=== PATIENT | female | born 1990 | race Hispanic/Latino ===

== ENCOUNTER 2017-08-20 22:17 | Emergency (ER) | payer SELFPAY ==
[2017-08-20 23:07] LABS: BASOPHILS % (AUTO) 0.5 % (0.0-5.0); EOSINOPHILS % (AUTO) 2.7 % (0.0-8.0); HEMATOCRIT 35.1 % (36-48); LYMPHOCYTES % (AUTO) 27.5 % (21.0-51.0); MEAN CORPUSCULAR HEMOGLOBIN 31.3 pg (27.0-33.0); MEAN CORPUSCULAR HGB CONC 36.2 g/dL (32.0-36.0); MEAN CORPUSCULAR VOLUME 86.5 fL (79-99); MONOCYTES % (AUTO) 7.9 % (3.0-13.0); NEUTROPHILS % (AUTO) 61.4 % (40.0-77.0); PLATELET COUNT (AUTO) 251 K/uL (130-400); RED BLOOD CELL COUNT(AUTO) 4.06 MIL/uL (4.00-5.50); RED CELL DISTRIBUTION WIDTH 14.5 % (11.0-15.5); WHITE BLOOD COUNT (AUTO) 8.9 K/uL (4.8-10.8)
[2017-08-20 23:23] LABS: CREATININE 0.6 mg/dL (0.5-1.5); POTASSIUM 3.9 mmol/L (3.5-5.1)
[2017-08-20 23:28] LABS: APPEARANCE,URINE Clear (CLEAR); BILIRUBIN,URINE Negative (NEGATIVE); COLOR,URINE Yellow (YELLOW); GLUCOSE, URINE (UA) Negative (NEGATIVE); KETONES,URINE Negative (NEGATIVE); LEUKOCYTE ESTERASE ,URINE Negative (NEGATIVE); NITRATE,URINE Negative (NEGATIVE); OCCULT BLOOD,URINE Negative (NEGATIVE); PH,URINE 6.5 (5.0-8.0); PROTEIN,URINE Negative (NEGATIVE)
[2017-08-20 23:49] LABS: ALBUMIN 3.9 g/dL (3.5-5.0); BILIRUBIN,TOTAL 0.5 mg/dL (0.2-1.0); TOTAL PROTEIN, SERUM 7.3 g/dL (6.0-8.3)
== END 2017-08-21 01:35 | disposition home or self-care (01) ==
LOC: EDH 22:17
DX: O20.0 Threatened abortion (principal); Z79.899 Other long term (current) drug therapy; Z3A.08 8 weeks gestation of pregnancy
CPT/HCPCS: 36415; 76801; 80053; 81003; 84702; 85025; 86900; 86901

== ENCOUNTER 2022-09-04 08:59 | Emergency (ER) | payer OTHER ==
[~2022-09-04] VITALS: Ht 162.6 cm; Wt 70.3 kg
[2022-09-04 10:16] LABS: APPEARANCE,URINE CLEAR (CLEAR); BILIRUBIN,URINE NEGATIVE (NEGATIVE); COLOR,URINE LIGHT-YELLOW (YELLOW); GLUCOSE, URINE (UA) NEGATIVE (NEGATIVE); KETONES,URINE NEGATIVE (NEGATIVE); LEUKOCYTE ESTERASE ,URINE NEGATIVE Leu/uL (NEGATIVE); NITRATE,URINE NEGATIVE (NEGATIVE); OCCULT BLOOD,URINE NEGATIVE (NEGATIVE); PROTEIN,URINE NEGATIVE (NEGATIVE); UROBILINOGEN,URINE 0.2 mg/dL (0.2-1.0)
[2022-09-04 10:17] LABS: HCG,QUALITATIVE URINE NEGATIVE (NEGATIVE)
[2022-09-04] MEDS ORDERED: SOLU-MEDROL 125MG VIAL IM ONE (10:30)
[2022-09-04] MEDS ORDERED: ORPHENADRINE CITRATE 30 MG/ML ML IM ONE (10:30)
[2022-09-04] MEDS ORDERED: KETOROLAC 60 MG VIAL (30MG/ML) IM ONE (10:30)
[2022-09-04] MEDS ORDERED: CYCL-309 PO (11:54)
[2022-09-04] MEDS ORDERED: NAPR-1180 PO (11:54)
[2022-09-04 12:34] VITALS: BP 124/81
== END 2022-09-04 12:32 | disposition home or self-care (01) ==
LOC: EDH 08:59
DX: M54.42 Lumbago with sciatica, left side (principal); I10 Essential (primary) hypertension
CPT/HCPCS: 99284; 81003; 81025; 96372; J2930; J1885; J2360

== ENCOUNTER 2023-04-22 19:38 | Emergency (ER) | payer OTHER ==
[~2023-04-22] VITALS: Ht 162.6 cm; Wt 66.7 kg
[~2023-04-22 19:38] MED LIST: CYCL-309 PO; NAPR-1180 PO
[2023-04-22 20:01] VITALS: BP 117/77; PULSE 78; RESP 20
[2023-04-22] MEDS ORDERED: DIAZEPAM 5 MG TABLET PO ONE (21:00)
[2023-04-22] MEDS ORDERED: PREDNISONE 20 MG TABLET PO ONE (21:00)
[2023-04-22] MEDS ORDERED: IBUPROFEN 600 MG TABLET PO ONE (21:00)
[2023-04-22] MEDS ORDERED: TIZANIDINE HCL 2 MG TABLET PO SCH (21:00)
[2023-04-22] MEDS ORDERED: PRED20TA3 PO (23:28)
[2023-04-22] MEDS ORDERED: GABA300C PO (23:28)
[2023-04-22] MEDS ORDERED: IBUP-2070 PO (23:28)
[2023-04-22] MEDS ORDERED: METH-811 PO (23:28)
[2023-04-22] MEDS ORDERED: KETOROLAC 30MG VIAL (30MG/ML) IM ONE (23:30)
[2023-04-22] MEDS ORDERED: GABAPENTIN 300 MG CAPSULE PO SCH (23:30)
== END 2023-04-22 23:40 | disposition home or self-care (01) ==
LOC: EDH 19:38
DX: M54.42 Lumbago with sciatica, left side (principal); Z79.899 Other long term (current) drug therapy; Z98.890 Other specified postprocedural states
CPT/HCPCS: 99284; 73552; 72100; 72170; 96372; J1885